=== PATIENT | male | born 1945 | race Caucasian/White ===

== ENCOUNTER 2017-02-11 20:09 | Observation (INO) | payer MEDICARE ==
[~2017-02-11] VITALS: Ht 170.2 cm; Wt 72.7 kg
[2017-02-11 20:52] LABS: BASOPHILS 0.6 % (0-2); EOSINOPHILS 5.1 % (0-7); HEMATOCRIT 47.2 % (42.0-54.0); HEMOGLOBIN 15.9 g/dL (13.5-17.5); IMMATURE GRANULOCYTES 0.3 % (0-5); MCH 32.5 pg (26.0-34.0); MCHC 33.7 g/dL (31.0-37.0); MCV 96.5 fL (80.0-100.0); MEAN PLATELET VOLUME 11.3 fL (7.4-10.4); PLATELET COUNT 153 10x3/uL (130-400); RBC 4.89 10x6/uL (4.20-6.10); RDW 12.9 % (11.5-14.5); WBC 10.3 10x3/uL (4.8-10.8)
[2017-02-11 21:13] LABS: ALBUMIN 3.9 g/dL (3.4-5.0); ALKALINE PHOSPHATASE 124 U/L (46-116); ALT (SGPT) 40 U/L (10-68); CALC OSMOLALITY 279 mosm/kg (275-300); CALCIUM 9.1 mg/dL (8.5-10.1); CARBON DIOXIDE 30.1 mmol/L (21.0-32.0); CHLORIDE - SERUM 100 mmol/L (98-107); CREATININE - SERUM 1.1 mg/dL (0.6-1.3); GLUCOSE 138 mg/dL (74-106); POTASSIUM - SERUM 3.7 mmol/L (3.5-5.1); PROTEIN - SERUM 7.1 g/dL (6.4-8.2); SODIUM 139 mmol/L (136-145); UREA NITROGEN 13 mg/dL (7-18); eGFR NON AFRICAN AMERICAN 70 mL/min (90-120)
[2017-02-11 21:22] LABS: PRO BNP 203 pg/mL (0-125); TROPONIN-I < 0.017 ng/mL (0.000-0.060)
[2017-02-11 21:24] LABS: APPEARANCE CLEAR (CLEAR); BILIRUBIN NEGATIVE (NEGATIVE); COLOR YELLOW (YELLOW); GLUCOSE NEGATIVE (NEGATIVE); KETONE NEGATIVE (NEGATIVE); LEUKOCYTE ESTERASE 1+ (NEGATIVE); NITRITE NEGATIVE (NEGATIVE); PROTEIN NEGATIVE (NEGATIVE); RED CELLS - URINE OCC /hpf (0-5); UROBILINOGEN NORMAL (NORMAL); WHITE CELLS - URINE 0-5 /hpf (0-5)
[2017-02-11] MEDS ORDERED: PEPCID20 MG PO (23:28)
[2017-02-11] MEDS ORDERED: FLOMAX0.4 MG PO (23:28)
[2017-02-11] MEDS ORDERED: BUPROPION HCL150 M1 PO (23:29)
[2017-02-11] MEDS ORDERED: MOBIC7.5 MG PO (23:30)
[2017-02-11] MEDS ORDERED: BREO ELLIPTA 11 EACH INH (23:30)
[2017-02-11] MEDS ORDERED: NORVASC5 MG PO (23:30)
--- NOTE | 2017-02-11 23:30 | NUR ---
RECIEVED TO ROOM 2125 FROM ER VITALS STABLE. A&O, PLACED ON TELEMETRY. IV TO LEFT AC, SL, SITE CLEAN AND DRY. AT BED SIDE, BED LOW, CL IN REACH.
[2017-02-11] MEDS ORDERED: PRESERVISION AR1 CAP PO (23:31)
[2017-02-11] MEDS ORDERED: SPIRIVA18 MCG INH (23:31)
[2017-02-11] MEDS ORDERED: MECLIZINE HCL12.5 MG PO (23:32)
[2017-02-11] MEDS ORDERED: FLOVENT DI50 MCG/DIS INH (23:32)
[2017-02-11] MEDS ORDERED: ACETAMINOPHEN500 M1 PO (23:33)
[2017-02-12] VITALS: BP 137/82
--- NOTE | 2017-02-12 03:26 | NUR ---
RESTING WITH EYES CLOSED, RESPERATIONS EVEN, NO S/S DISTRESS NOTED.
[2017-02-12 03:36] VITALS: Ht 170.2 cm; Wt 72.7 kg
[2017-02-12 04:00] VITALS: BP 130/81
[2017-02-12 05:53] LABS: BASOPHILS 0.2 % (0-2); EOSINOPHILS 0.2 % (0-7); HEMATOCRIT 49.3 % (42.0-54.0); HEMOGLOBIN 16.6 g/dL (13.5-17.5); IMMATURE GRANULOCYTES 0.2 % (0-5); LYMPHOCYTES 7.8 % (15-50); MCH 32.2 pg (26.0-34.0); MCHC 33.7 g/dL (31.0-37.0); MCV 95.7 fL (80.0-100.0); MEAN PLATELET VOLUME 11.3 fL (7.4-10.4); MONOCYTES 0.2 % (2-11); NEUTROPHILS 91.4 % (40-80); PLATELET COUNT 159 10x3/uL (130-400); RBC 5.15 10x6/uL (4.20-6.10); RDW 12.6 % (11.5-14.5); WBC 5.6 10x3/uL (4.8-10.8)
[2017-02-12 06:17] LABS: CALCIUM 9.4 mg/dL (8.5-10.1); CHLORIDE - SERUM 100 mmol/L (98-107); CHOL - HDL RATIO 4.8 ratio (2.3-4.9); CHOLESTEROL, TOTAL 257 mg/dL (0-200); CREATINE KINASE 156 UL (21-232); CREATININE - SERUM 1.1 mg/dL (0.6-1.3); HDL CHOLESTEROL 54 mg/dL (32-96); LDL CHOLESTEROL 182 mg/dL (0-100); LDL-HDL RATIO 3.4 ratio (1.5-3.5); POTASSIUM - SERUM 3.8 mmol/L (3.5-5.1); SODIUM 137 mmol/L (136-145); TRIGLYCERIDE 108 mg/dL (30-200); UREA NITROGEN 16 mg/dL (7-18); eGFR NON AFRICAN AMERICAN 70 mL/min (90-120)
[2017-02-12 06:22] LABS: CALC OSMOLALITY 281 mosm/kg (275-300); GLUCOSE 223 mg/dL (74-106); TROPONIN-I < 0.017 ng/mL (0.000-0.060)
[2017-02-12 07:00] VITALS: BP 114/79
--- NOTE | 2017-02-12 08:00 | NUR ---
INTRODUCED MYSELF TO PT PRIMARY RN FOR TODAYS SHIFT. SHIFT ASSESSMENT COMPLETED. PT STATES HE IS WANTING TO BE DISCHARGED TODAY AND HOPES TO. RR NONLABORED ON RA. PT DENIES ANY FURTHER PALPATATIONS SINCE ADMITTED. CL IN REACH, BED IN LOWEST, SIDE RAILS X2 WILL CTM.
--- NOTE | 2017-02-12 11:18 | NUR ---
D/C PTS L.AC PIV WITH CATHETER TIP FULLY INTACT. DISCHARGE TEACHING PROVIDED AND PAPERS SIGNED. PT READY TO BE DISCHARGED. DENIES ANY FURTHER NEEDS AT THIS TIME.
--- NOTE | 2017-02-13 08:49 | DS ---
PATIENT:YOLANDA VEGA :49 MEDICAL RECORD: [id number] DISCHARGE SUMMARY ADMISSION DATE: 02/11/17 DISCHARGE DATE: 02/12/17 DIAGNOSES: 1. Near syncope. 2. Palpitations. HOSPITAL COURSE: This is a gentleman who presents with dizziness, near syncope. On taking his pulse when he had his symptomatology, he states that his heart rate was in the 30s, difficult to say whether this was PVCs with a palpated pulse of 30s or if it was actually bradycardia. He does feel palpitations when he was admitted here and observed overnight. He had no significant dysrhythmias. 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 He is visiting the [facility] from [place]. Discharged home with no change in medications. He will follow up with his corporate human resources manager in [place] for long-term monitoring. TRANSINT:[id number] Voice Confirmation ID: [id number] DOCUMENT ID: [id number] MORAIMA ELIAS MD at 0849 CC: [id number] DICTATION DATE: 02/12/17 0933 PL[employer] SCIENTIST: 02/13/17 0720 DIS IN 02/12/17 [facility] [address] [place] [id number]
== END 2017-02-12 11:19 | disposition home or self-care (01) ==
LOC: D.ER 20:09 → D.M2 22:06 → OBSVTIME 22:06 → D.M2 02-12 11:19
PROVIDERS: Family Medicine; Nurse Practitioner Family; ADMIT Internal Medicine Interventional Cardiology
DX: R00.2 Palpitations (principal); R55 Syncope and collapse; I10 Essential (primary) hypertension; J44.9 Chronic obstructive pulmonary disease, unspecified; Z86.73 Personal history of transient ischemic attack (TIA), and cerebral infarction without residual deficits; Z72.0 Tobacco use